=== PATIENT | female | born 1985 | race Caucasian/White ===

== ENCOUNTER 2017-08-16 13:16 | Inpatient (IN) ==
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
[2017-08-16 14:14] LABS: Basophils % 0.4 %; Eosinophils # 0.3 K/mcL (0.0-0.6); Eosinophils % 3.5 %; Immature Granulocytes % 0.3 % (0-4); Lymphocytes # 2.8 K/mcL (0.6-4.6); Lymphocytes % 39.3 %; Mean Corpuscular HGB Conc 33.3 g/dL (31.6-35.5); Mean Corpuscular Volume 86.9 fL (83.0-100.0); Mean Platelet Volume 10.1 fL (9.4-12.4); Monocytes # 0.4 K/mcL (0.0-1.3); Monocytes % 6.1 %; Neutrophils # 3.6 K/mcL (1.6-8.9); Platelet Count 282 K/mcL (140-400); Red Blood Count 5.18 M/mcL (3.82-4.97); Red Cell Distribution Width 13.5 % (11.5-14.5); Segmented Neutrophils % 50.4 %
[2017-08-16 14:18] LABS: Calcium 8.8 mg/dL (8.6-10.3); Carbon Dioxide 22 mEq/L (23-29); Chloride 109 mEq/L (98-107); Potassium 3.6 mEq/L (3.5-5.1); Sodium 137 mEq/L (136-145)
[2017-08-16 14:24] LABS: Acetaminophen < 1.0 mcg/mL (10-30); BUN/Creatinine Ratio 13 (6-26); Blood Urea Nitrogen 12 mg/dL (6-20); Ethanol < 10 mg/dL (0-10); Glucose 98 mg/dL (70-105); Osmolality,Calculated 284 (280-300); Salicylate < 5.0 mg/dL (15.0-30.0); eGFR For African Americans > 60 (> 60); eGFR For Non-African Americans > 60 (> 60)
[2017-08-16 15:03] LABS: Amphetamine Screen,Urine Negative ng/mL (Cutoff=1000); Barbiturate Screen,Urine Negative ng/mL (Cutoff=200); Benzodiazepines Screen,Urine Positive ng/mL (Cutoff=200); Cannabinoid Screen,Urine Negative ng/mL (Cutoff = 50); Cocaine Screen,Urine Negative ng/mL (Cutoff= 300); Opiate Screen,Urine Negative ng/mL (Cutoff=300); Phencyclidine Screen,Urine Negative ng/mL (Cutoff=25)
[2017-08-16 15:07] LABS: Bilirubin,Urine Negative (Negative); Blood,Urine Negative (Negative); Clarity,Urine Clear (Clear); Color,Urine Yellow (Yellow); Glucose,Urine (UA) Normal (Normal); Ketones,Urine Negative (Negative); Leukocyte Esterase,Urine Negative (Negative); Nitrite,Urine Negative (Negative); Protein,Urine Negative (Neg-Trace); Specific Gravity,Urine 1.024 (1.010-1.025); Urobilinogen,Urine Normal (Normal)
[2017-08-16] MEDS ORDERED: MOM Conc 10 ML UD.LIQ PO PRN (19:01)
[2017-08-16] MEDS ORDERED: Haloperidol Lactate 5 MG/ML VIAL IM PRN (19:01)
[2017-08-16] MEDS ORDERED: Mag Hydrox/Al Hydrox/Simeth 30 ML UDC PO PRN (19:01)
[2017-08-16] MEDS: Gabapentin 300 MG CAPSULE PO SCH (21:51)
[2017-08-16] MEDS: Topiramate 25 MG TABLET PO SCH (21:51)
[2017-08-16] MEDS: Topiramate 100 MG TABLET PO SCH (21:51)
[2017-08-16] MEDS: clonazePAM 1 MG TABLET PO SCH (21:51)
[2017-08-16] MEDS: OLANZapine 10 MG TAB.RAPDIS PO SCH (21:52)
[2017-08-16] MEDS: traZODone 50 MG TABLET PO PRN (21:58)
[2017-08-16] MEDS: Ibuprofen 800 MG TABLET PO PRN (21:58)
[2017-08-16] MEDS: Mirtazapine 15 MG TABLET PO SCH (22:11)
[2017-08-16] MEDS: (Azelastine Hcl [Azelastine Hcl] 1 DROP) OP SCH (22:11)
[2017-08-17] MEDS: tiZANidine 4 MG TABLET PO SCH ×4 (00:04→20:58)
[2017-08-17] MEDS: BuPROPion SR (12 HR) 150 MG TABLET PO SCH ×3 (00:05→20:56)
[2017-08-17] MEDS: Gabapentin 300 MG CAPSULE PO SCH ×3 (08:18→20:58)
[2017-08-17] MEDS: clonazePAM 1 MG TABLET PO SCH ×2 (08:19→20:58)
[2017-08-17] MEDS: Topiramate 25 MG TABLET PO SCH ×2 (08:20→20:59)
[2017-08-17] MEDS: Topiramate 100 MG TABLET PO SCH ×2 (08:20→20:58)
[2017-08-17] MEDS: Fluticasone Propionate Nasal 50 MCG/SPRAY BOTTLE NS SCH (08:21)
[2017-08-17] MEDS: (Azelastine Hcl [Azelastine Hcl] 1 DROP) OP SCH ×2 (08:24→20:59)
[2017-08-17] MEDS: ORTHO TRI CYCLEN LO PO SCH (08:24)
[2017-08-17] MEDS: Ibuprofen 800 MG TABLET PO PRN ×3 (12:18→21:09)
[2017-08-17] MEDS: Loratadine 10 MG TABLET PO SCH (14:47)
[2017-08-17] MEDS: Mirtazapine 15 MG TABLET PO SCH (20:56)
[2017-08-17] MEDS: SUMAtriptan succinate 50 MG TABLET PO PRN (20:58)
[2017-08-17] MEDS: OLANZapine 10 MG TAB.RAPDIS PO SCH (20:58)
[2017-08-17] MEDS: traZODone 50 MG TABLET PO PRN (20:58)
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
[2017-08-18] MEDS: (Azelastine Hcl [Azelastine Hcl] 1 DROP) OP SCH ×2 (09:12→22:15)
[2017-08-18] MEDS: ORTHO TRI CYCLEN LO PO SCH (09:12)
[2017-08-18] MEDS: Fluticasone Propionate Nasal 50 MCG/SPRAY BOTTLE NS SCH (09:12)
[2017-08-18] MEDS: Topiramate 100 MG TABLET PO SCH ×2 (09:13→21:33)
[2017-08-18] MEDS: SUMAtriptan succinate 50 MG TABLET PO PRN ×2 (09:13→21:34)
[2017-08-18] MEDS: Topiramate 25 MG TABLET PO SCH ×2 (09:13→21:33)
[2017-08-18] MEDS: BuPROPion SR (12 HR) 150 MG TABLET PO SCH ×2 (09:14→21:33)
[2017-08-18] MEDS: Gabapentin 300 MG CAPSULE PO SCH (09:14)
[2017-08-18] MEDS: Ibuprofen 800 MG TABLET PO PRN ×3 (09:14→21:34)
[2017-08-18] MEDS: clonazePAM 1 MG TABLET PO SCH ×2 (09:15→21:29)
[2017-08-18] MEDS: Loratadine 10 MG TABLET PO SCH (09:15)
[2017-08-18] MEDS: tiZANidine 4 MG TABLET PO SCH ×3 (09:15→21:30)
--- NOTE | 2017-08-18 14:16 | Psychiatry Progress Note ---
Date of Encounter: 08/18/17 Time of Encounter: 13:45 Subjective Interval history: "I kind of feel like I can breathe again". Patient states that she is feeling much less physically tense and more comfortable. "I do not feel like I am so wound up that I could explode at any time". She states that she still feels william and emotional, but not as bad as it was. The william and emotional part is in her head, not physically in her body which is different now, improved physically. We talk further about modifications of medications. We discussed her Topamax and gabapentin. She states that she got great improvement with her migraines on the Topamax. She stated that she was later put on gabapentin for nerve pain which the Topamax help some with already. She states that even though she was placed on the gabapentin, it never improved any further than it already had with the Topamax. She stated that she was overall compliant taking the medication but sometimes alternatively took it twice a day instead of 3 times a day. She states that she noticed no difference with the gabapentin and is willing to have it DC'd to see about possibly further modification of her medications and decreasing potential adverse side effects. She does not feel safe leaving the unit currently, but she is not actively suicidal. Focused on her depressive symptos but feels like she is making progress. Objective: Exam Patient orientation: Yes Person, Yes Place, Yes Circumstance Level of alertness: Other (tired) Patient appearance: Average Behavior: nervous Psychomotor activity: Agitated (mild) Eye contact: Maintains Eye Contact Mood description: Anxious Affect description: congruent with mood Speech pattern: Normal rate, Normal rhythm, Normal tone Speech volume: Normal Thought process: Intact, Logical, Linear Thought content: Yes Intact Judgment: Fair Insight: Full Results - Vital Signs Vital Signs: Temp Pulse Resp BP Pulse Ox 98.4 F 16 16 116/73 100 08/18/17 10:38 08/18/17 10:38 08/18/17 10:38 08/18/17 10:38 08/16/17 14:32 Assessment and Plan (1) PTSD (post-traumatic stress disorder) Status: Acute Plan: Continue hospitalization, Close observation, Suicide Precautions per unit protocol, Encourage participation in unit milieu, Group Therapy Risks, benefits, side effects, alternatives discussed w/pt: Yes Patient agreeable to treatment: Yes (2) Neuroleptic-induced acute akathisia Status: Acute Risks, benefits, side effects, alternatives discussed w/pt: Yes (Improved without evening dose of Zyprexa) Patient agreeable to treatment: Yes ( possible rule out) (3) Bipolar 1 disorder Status: Acute Plan: Continue hospitalization, Close observation, Suicide Precautions per unit protocol, Encourage participation in unit milieu Risks, benefits, side effects , alternatives discussed w/pt: Yes (medication adjust in the future) Patient agreeable to treatment: Yes (4) Polypharmacy Status: Acute Plan: Continue hospitalization Risks, benefits, side effects, alternatives discussed w/pt: Yes Patient agreeable to treatment: Yes (Simplyfiying her medications; maximizing dosage of some and decreasing othe) Consult Discharge Plan - Plan Instructions: Bipolar Disorder (DC), Depression (DC) Referrals: [facility] [Outside] - 08/23/17 2:00 pm (The above appointment is with [facility] for outpatient mental health counseling services. You will also see Dahlia Butts for outpatient psychiatric assessment and medication management services on 08/24/2017 at 1:00 PM.) Prescriptions: Benzocaine 20% [Orajel] 1 gm TP TID PRN 30 Days #1 gel..gram. PRN Reason: Mouth Sore Pain hydrOXYzine pamoate [HydrOXYzine Pamoate] 25 mg PO TID PRN 30 Days #60 capsule PRN Reason: Anxiety Norgestimate-Ethinyl Estradiol [Ortho Tri-Cyclen Lo Tablet] 1 each PO DAILY 28 Days #28 tablet traZODone [TraZODone] 50 mg PO HS PRN 30 Days #20 tablet PRN Reason: Insomnia
[2017-08-18] MEDS: hydrOXYzine pamoate 25 MG CAPSULE PO PRN ×3 (14:56→23:20)
[2017-08-18] MEDS: Benzocaine 20% 9 GM GEL..GRAM. TP PRN ×2 (16:34→22:08)
[2017-08-18] MEDS: traZODone 50 MG TABLET PO PRN (21:34)
[2017-08-18] MEDS: OLANZapine 10 MG TAB.RAPDIS PO SCH (22:15)
[2017-08-18] MEDS: Mirtazapine 15 MG TABLET PO SCH (22:15)
[2017-08-19] MEDS: SUMAtriptan succinate 50 MG TABLET PO PRN ×2 (06:58→09:22)
[2017-08-19] MEDS: Fluticasone Propionate Nasal 50 MCG/SPRAY BOTTLE NS SCH (09:15)
[2017-08-19] MEDS: Loratadine 10 MG TABLET PO SCH (09:16)
[2017-08-19] MEDS: BuPROPion SR (12 HR) 150 MG TABLET PO SCH (09:16)
[2017-08-19] MEDS: tiZANidine 4 MG TABLET PO SCH (09:17)
[2017-08-19] MEDS: Topiramate 100 MG TABLET PO SCH (09:17)
[2017-08-19] MEDS: Topiramate 25 MG TABLET PO SCH (09:17)
[2017-08-19] MEDS: clonazePAM 1 MG TABLET PO SCH (09:17)
[2017-08-19] MEDS: hydrOXYzine pamoate 25 MG CAPSULE PO PRN (09:22)
[2017-08-19] MEDS: Ibuprofen 800 MG TABLET PO PRN (09:23)
[2017-08-19] MEDS: (Azelastine Hcl [Azelastine Hcl] 1 DROP) OP SCH (09:24)
[2017-08-19] MEDS: ORTHO TRI CYCLEN LO PO SCH (09:24)
--- NOTE | 2017-08-19 12:32 | Discharge Summary ---
Date of Encounter: 08/19/17 Time of Encounter: 12:15 Diagnosis - Discharge Diagnosis (1) PTSD (post-traumatic stress disorder) Status: Acute (2) Neuroleptic-induced acute akathisia Status: Acute (3) Bipolar 1 disorder Status: Acute Medications - Discharge Medications Prescriptions: Benzocaine 20% [Orajel] 1 gm TP TID PRN 30 Days #1 gel..gram. PRN Reason: Mouth Sore Pain hydrOXYzine pamoate [HydrOXYzine Pamoate] 25 mg PO TID PRN 30 Days #60 capsule PRN Reason: Anxiety Norgestimate-Ethinyl Estradiol [Ortho Tri-Cyclen Lo Tablet] 1 each PO DAILY 28 Days #28 tablet traZODone [TraZODone] 50 mg PO HS PRN 30 Days #20 tablet PRN Reason: Insomnia Montelukast [Singulair] 10 mg PO HS 08/08/15 [History] Topiramate [Topamax] 200 mg PO BID 08/08/15 [History] Albuterol Sulfate [Ventolin Hfa] 2 puff IH Q4H PRN 08/16/17 [History] Azelastine HCl 1 drop OP BID 08/16/17 [History] BuPROPion SR (12 HR) [Wellbutrin SR] 150 mg PO BID 08/16/17 [History] Cyclobenzaprine [Flexeril] 10 mg PO TID 08/16/17 [History] Eletriptan HBr [Relpax] 40 mg PO DAILY PRN 08/16/17 [History] Fluticasone Propionate Nasal [Flonase] 50 mcg NS DAILY 08/16/17 [History] Guanfacine [Tenex] 2 mg PO HS 08/16/17 [History] Nortriptyline 10 mg PO DAILY 08/16/17 [History] Omeprazole [PriLOSEC] 40 mg PO DAILY 08/16/17 [History] SUMAtriptan succinate [Imitrex] 50 mg PO Q2H PRN MDD 100 mg 08/16/17 [History] Tizanidine HCl 4 mg PO TID 08/16/17 [History] Topiramate [Topamax] 25 mg PO BID 08/16/17 [History] Xyzal 5 mg PO DAILY 08/16/17 [History] clonazePAM [Klonopin] 1 mg PO BID 08/16/17 [History] Benzocaine 20% [Orajel] 1 gm TP TID PRN 30 Days #1 gel..gram. 08/19/17 [Rx] Clindamycin [Cleocin] 150 mg PO Q8H capsule 08/19/17 [Rx] Ibuprofen [Motrin] 800 mg PO TID PRN tablet 08/19/17 [Rx] Norgestimate-Ethinyl Estradiol [Ortho Tri-Cyclen Lo Tablet] 1 each PO DAILY 28 Days #28 tablet 08/19/17 [Rx] hydrOXYzine pamoate [HydrOXYzine Pamoate] 25 mg PO TID PRN 30 Days #60 capsule 08/19/17 [Rx] traZODone [TraZODone] 50 mg PO HS PRN 30 Days #20 tablet 08/19/17 [Rx] 3 Allergy/AdvReac Type Severity Reaction Status Date / Time carbamazepine [From Tegretol] Allergy Hives Verified 04/25/17 15:01 latex Allergy Hives Verified 04/25/17 15:01 Penicillins Allergy Hives Verified 04/25/17 15:01 shellfish derived Allergy Rash Verified 04/25/17 15:01 Sulfa (Sulfonamide Allergy Hives Verified 04/25/17 15:01 Antibiotics) IVP DYE Allergy Hives Uncoded 04/25/17 15:01 Provider Date of admission: 08/16/17 18:14 Primary care physician: PCP NONE Assessment and Plan - Patient/Caregiver Discharge Instructions Activity: resume usual activities as tolerated Diet: regular diet - Follow up Plan Follow up with: [facility] [Outside] - 08/23/17 2:00 pm (The above appointment is with [facility] for outpatient mental health counseling services. You will also see Dahlia Butts for outpatient psychiatric assessment and medication management services on 08/24/2017 at 1:00 PM.) Functional capacity at discharge: independent ambulation Overall status at discharge: Stable Disposition: Home, Self-Care Hospital Course Hospital course: Ms. Heath is a 32 year old female who tells me "I am sleeping better, not thinking of hurting myself. I am not as anxious and just overall good!" Patient talks about the modifications we made in her medications; the stopping of the Remeron, gabapentin and the Zyprexa. (Lengthy discussion previous on PolyPharmacy) Further education and discussion on akathisia from Zyprexa. ""I am feeling so much better. So much more physically comfortable". She still has anxiety which she understands that shall continue to have as she worries about things and remembers things in dealing with her PTSD. But, "no more restless legs and arms like it was". She denies any suicidal/homicidal ideation. She denies any auditory or visual hallucinations. She verbalizes the education and understanding more of the polypharmacy she was experiencing and will continue to work with her outpatient neurologist/migraine specialist as well as her psychiatrist to try and minimize duplicate medications and maximize medications that can be used to treat both things at one time. She states that she is feeling much better. Mood is stable and that she is ready to discharge. She is looking forward to starting up with a new psychiatrist for further medication refinement and will definitely explain to the new psychiatrist what medications were adjusted while being on the 1A inpatient unit. Time spent discussing smoking cessation with patient: 3 to 10 minutes Does patient wish to continue nicotine replacement upon disc: No - Time Spent with Patient Total time spent providing and/or coordinating discharge services: 25 min Less than 30 minutes Quality - Multiple Antipsychotics Patient discharged on 2 or more antipsychotic medications: No - Additional Details Additional Details: Patient was experiencing Akathesia from the use of Zyprexa. No longer on any antipsychotics. She has further knowledge of the potential side effects and interactions of her medications. Procedures - Procedures Procedures: Medication Management, Crisis Stabilization, Supportive Therapy, Group Therapy, Psychoeducational Therapy Mental Status Exam - Mental Status Exam Patient orientation: Yes Person, Yes Time, Yes Place, Yes Circumstance Level of alertness: Alert Patient appearance: Appropriate, Well Groomed, Well-nourished Behavior: anxious (mildly) Psychomotor activity: Normal (not agitated as she was early in admission) Eye contact: Maintains Eye Contact Mood description: Euthymic/stable Patient description of mood: Good Affect description: congruent with mood Speech pattern: Normal rate, Normal rhythm, Normal tone, Appropriate Speech Volume: Normal Thought process: Intact, Logical, Linear, Goal Oriented Thought Content: Yes Intact Judgment: Good Insight: Full
[2017-08-19 13:31] VITALS: BP 112/71
== END 2017-08-19 14:22 | disposition home or self-care (01) | DRG 755 ==
LOC: EMEROO 13:16 → 1ANU 13:16
PROVIDERS: ADMIT Psychiatry & Neurology Psychiatry; ATTEND Psychiatry & Neurology Psychiatry

== ENCOUNTER 2022-05-09 18:51 | Observation (INO) ==
[2022-05-09] MEDS ORDERED: 0.9 % Sodium Chloride 1,000 ML IV ONE (20:03)
[2022-05-09 20:40] LABS: Alanine Aminotransferase 85 Units/L (7-52); Albumin 3.9 g/dL (3.5-5.7); Albumin/Globulin Ratio 1.3 (1.1-2.2); Alkaline Phosphatase 141 Units/L (34-104); Amylase 18 Units/L (29-103); Aspartate Amino Transferase 101 Units/L (13-39); BUN/Creatinine Ratio 15 (6-26); Bilirubin,Direct 0.1 mg/dL (0.0-0.2); Bilirubin,Indirect 0.4 mg/dL (0.0-1.0); Bilirubin,Total 0.5 mg/dL (0.3-1.0); Blood Urea Nitrogen 12 mg/dL (6-20); Calcium 8.7 mg/dL (8.6-10.3); Carbon Dioxide 21 mEq/L (23-29); Chloride 105 mEq/L (98-107); Globulin 3.1 g/dL (2.4-3.5); Glucose 115 mg/dL (70-105); Lipase 5 Units/L (11-82); Osmolality,Calculated 279 (280-300); Potassium 3.7 mEq/L (3.5-5.1); Sodium 134 mEq/L (136-145)
[2022-05-09 21:10] LABS: Bacteria,Urine Few per hpf (None-Few); Bilirubin,Urine Small (Negative); Blood,Urine Moderate (Negative); Clarity,Urine Turbid (Clear); Color,Urine Yellow (Yellow); Glucose,Urine (UA) Normal (Normal); Ketones,Urine Negative (Negative); Leukocyte Esterase,Urine Small (Negative); Mucus,Urine Moderate per lpf (None-Few); Nitrite,Urine Negative (Negative); PH,Urine 6.5 pH Units (5.0-8.0); Protein,Urine 70 mg/dL (Neg-Trace); RBC,Urine 50-100 per hpf (0-3); Specific Gravity,Urine > 1.030 (1.010-1.025); Squamous Epithelial Cell,Urine Moderate per hpf (None-Few); Urobilinogen,Urine >=8.0 mg/dL (Normal)
[2022-05-09 21:47] LABS: Basophils % 0.5 %; Eosinophils # 0.5 K/mcL (0.0-0.6); Eosinophils % 7.3 %; Hematocrit 41.3 % (35.3-44.9); Hemoglobin 13.9 g/dL (11.5-15.4); Immature Granulocytes % 0.5 % (0-4); Lymphocytes # 1.3 K/mcL (0.6-4.6); Lymphocytes % 20.3 %; Mean Corpuscular HGB Conc 33.7 g/dL (31.6-35.5); Mean Corpuscular Hemoglobin 29.6 pg (28.0-33.3); Mean Corpuscular Volume 88.1 fL (83.0-100.0); Mean Platelet Volume 10.7 fL (9.4-12.4); Monocytes # 0.7 K/mcL (0.0-1.3); Monocytes % 10.9 %; Neutrophils # 3.8 K/mcL (1.6-8.9); Platelet Count 145 K/mcL (140-400); Red Blood Count 4.69 M/mcL (3.82-4.97); Red Cell Distribution Width 12.8 % (11.5-14.5); Segmented Neutrophils % 60.5 %; White Blood Count 6.3 K/mcL (4.3-11.1)
[2022-05-09] MEDS ORDERED: *HR* FentaNYL (PF) 100 MCG/2 ML VIAL IVP ONE (22:51)
[2022-05-09] MEDS ORDERED: Metoclopramide 10 MG/2 ML VIAL IVP ONE (22:51)
[2022-05-10] MEDS ORDERED: Morphine Sulfate 2 MG/ML SYRINGE IVP ONE (01:23)
[2022-05-10] MEDS ORDERED: Ondansetron 4 MG/2 ML VIAL IVP PRN ×2 (06:36→15:09)
[2022-05-10] MEDS ORDERED: Ketorolac 30 MG/ML VIAL IVP PRN ×4 (06:36→15:09)
[2022-05-10] MEDS ORDERED: *HR* OxyCODONE/APAP 5/325 TABLET PO PRN (06:36)
[2022-05-10] MEDS ORDERED: 0.9 % Sodium Chloride 1,000 ML IVC SCH ×2 (06:45→15:09)
[2022-05-10] MEDS ORDERED: cefOXitin 2,000 MG in 0.9 % Sodium Chloride 20 ML IVP SCH (08:00)
[2022-05-10] MEDS ORDERED: *HR* Midazolam HCl 2 MG/2 ML VIAL ONE (12:04)
[2022-05-10] MEDS ORDERED: *HR* FentaNYL (PF) 100 MCG/2 ML VIAL ONE (12:04)
[2022-05-10] MEDS ORDERED: *HR* Succinylcholine 200 MG/10 ML VIAL IVP ONE (12:04)
[2022-05-10] MEDS ORDERED: Lidocaine -MPF 2% 2 ML VIAL ONE (12:05)
[2022-05-10] MEDS ORDERED: *HR* Propofol 200 MG/20 ML VIAL IVP ONE (12:05)
[2022-05-10] MEDS ORDERED: Ondansetron 4 MG/2 ML VIAL ONE (12:05)
[2022-05-10] MEDS ORDERED: *HR* Rocuronium Bromide 50 MG/5 ML VIAL ONE (12:05)
[2022-05-10] MEDS ORDERED: *HR* HYDROMORPHONE 2 MG/ML VIAL ONE ×2 (12:05→13:59)
[2022-05-10] MEDS ORDERED: Ketamine HCL *QUVA* 50mg (1mL) SYRINGE ONE (12:06)
[2022-05-10] MEDS ORDERED: *HR* Magnesium Sulfate 1 GM/2 ML VIAL ONE (12:06)
[2022-05-10] MEDS ORDERED: Dexmedetomidine HCl 400 MCG/100 ML MLS IVC ONE (12:07)
[2022-05-10] MEDS ORDERED: Bupivacaine 0.5%-Epi 1:200,000 50 ML VIAL ONE (12:15)
[2022-05-10] MEDS ORDERED: Famotidine 20 MG/2 ML VIAL ONE (12:28)
[2022-05-10] MEDS ORDERED: Acetaminophen IV 1,000 MG/100 ML BAG IVPB ONE ×3 (12:49→15:09)
[2022-05-10] MEDS ORDERED: *HR* OxyCODONE Immed Rel 5 MG TABLET PO PRN ×2 (13:10→15:09)
[2022-05-10] MEDS ORDERED: Famotidine 20 MG/2 ML VIAL IVP ONE ×2 (13:10→15:09)
[2022-05-10] MEDS ORDERED: *HR* HYDROmorphone 2 MG TABLET PO PRN ×2 (13:10→15:09)
[2022-05-10] MEDS ORDERED: Pregabalin 75 MG CAPSULE PO ONE ×2 (13:10→15:09)
[2022-05-10] MEDS ORDERED: Promethazine 6.25 MG in Water for inj. (sterile) 20 ML IVPB PRN ×2 (13:10→15:09)
[2022-05-10] MEDS ORDERED: *HR* Labetalol 20 MG/4 ML SYRINGE IVP PRN ×2 (13:10→15:09)
[2022-05-10] MEDS ORDERED: *HR* Labetalol 20 MG/4 ML SYRINGE IVP ONE (13:44)
[2022-05-10] MEDS ORDERED: Ketorolac 30 MG/ML VIAL ONE (13:46)
[2022-05-10] MEDS ORDERED: Ringers Solution, Lactated 1,000 ML ONE (14:15)
[2022-05-10] MEDS: *HR* HYDROmorphone (PF) 1 MG/ML SYRINGE IVP PRN ×2 (14:16→14:26)
[2022-05-10] MEDS ORDERED: *HR* HYDROmorphone (PF) 1 MG/ML SYRINGE IVP PRN (15:09)
[2022-05-10] MEDS: cefOXitin 2,000 MG in 0.9 % Sodium Chloride 20 ML IVP SCH ×2 (16:08→22:50)
[2022-05-10] MEDS: *HR* OxyCODONE/APAP 5/325 TABLET PO PRN (20:59)
[2022-05-11 02:26] LABS: Hematocrit 40.5 % (35.3-44.9); Hemoglobin 13.6 g/dL (11.5-15.4); Mean Corpuscular HGB Conc 33.6 g/dL (31.6-35.5); Mean Corpuscular Hemoglobin 29.6 pg (28.0-33.3); Mean Corpuscular Volume 88.2 fL (83.0-100.0); Mean Platelet Volume 11.1 fL (9.4-12.4); Platelet Count 183 K/mcL (140-400); Red Blood Count 4.59 M/mcL (3.82-4.97); Red Cell Distribution Width 12.7 % (11.5-14.5); White Blood Count 9.1 K/mcL (4.3-11.1)
[2022-05-11] MEDS: *HR* OxyCODONE/APAP 5/325 TABLET PO PRN (05:08)
[2022-05-11 06:52] VITALS: BP 111/77; PULSE 80; TEMP 98
[2022-05-11] MEDS ORDERED: Ibuprofen 400 MG TABLET PO ONE (06:55)
[2022-05-11] MEDS ORDERED: *HR* OxyCODONE Immed Rel 5 MG TABLET PO PRN (06:56)
[2022-05-11 07:40] VITALS: O2SAT 98
[2022-05-11] MEDS ORDERED: Gabapentin 400 MG CAPSULE PO SCH (09:00)
[2022-05-11] MEDS ORDERED: ATOMOXETINE HCL 60 MG PO SCH (09:00)
[2022-05-11] MEDS ORDERED: FLUoxetine 20 MG CAPSULE PO SCH (09:00)
[2022-05-11] MEDS ORDERED: Budesonide/Formoterol 80/4.5 1 PUFF INH IH SCH (10:00)
[2022-05-11] MEDS ORDERED: Lurasidone 20 MG TABLET PO SCH (21:00)
== END 2022-05-11 08:32 | disposition home or self-care (01) ==
LOC: EMEROOARM 18:51 → 3BNU 18:51
PROVIDERS: ADMIT Surgery; ATTEND Surgery